=== PATIENT | male | born 1985 | race Caucasian/White ===

== ENCOUNTER 2022-03-08 06:36 | Emergency (ER) | payer BC, SELFPAY ==
[2022-03-08 06:41] VITALS: BP 158/120; PULSE 120; RESP 16; TEMP 37; O2SAT 98
--- NOTE | 2022-03-08 06:46 | ED.SKABFB ---
HPI - Skin/Abscess/Foreign Bdy General Chief complaint: Skin/Abscess/Foreign Body Stated complaint: elbow pain Time Seen by Provider: 03/08/22 06:44 History of Present Illness HPI narrative: Pt awoke with redness and swelling to right elbow. Pt denies trauma or repeatedly leaning on elbow. Pt denies fever or chills. Related Data Allergies Allergy/AdvReac Type Severity Reaction Status Date / Time No Known Allergies Allergy Verified 03/08/22 07:08 Review of Systems Review of Systems: All systems reviewed & are unremarkable except as noted in HPI and below PMFSH Family History Family History (Updated 05/12/14 @ 07:13 by DOCTOR UNKNOWN) Father Hypertension Mother Asthma Other Family history of arthritis Social History Social History Smoking status: Current every day smoker Alcohol intake: current Exam Const: General: healthy appearing and no acute distress Nutritional Appearance: well nourished Orientation/consciousness: patient oriented x3 Limitations: no limitations Resp: Effort & Inspection: normal respiratory effort Auscultation: clear to auscultation bilaterally Cardio: Rate: regular rate Rhythm: regular rhythm GI: GI Palp: Yes Soft to palpation Auscultation: normal bowel sounds Skin: Other: tender erythematous fluctuant area to right posterior elbow. Neuro: General: patient oriented x3, moves all extremities and no focal motor deficits Speech: normal speech Extrem: General: no pedal edema Psych: Mental Status: mental status grossly normal Affect: normal affect Attitude: cooperative Course Course Emergency Course: i and d with no pus mostly blood so more likely bursitis than abscess. will treat as such but add antibiotics just in case Vital Signs Vital signs: Vital Signs Temperature 98.6 F 03/08/22 06:41 Pulse Rate 120 H 03/08/22 06:41 Respiratory Rate 16 03/08/22 06:41 Blood Pressure 158/120 H 03/08/22 06:41 Pulse Oximetry 98 03/08/22 06:41 Temperature 98.6 F 03/08/22 06:41 Pulse Rate 120 H 03/08/22 06:41 Respiratory Rate 16 03/08/22 06:41 Blood Pressure 158/120 H 03/08/22 06:41 Pulse Oximetry 98 03/08/22 06:41 Procedures Abscess I/D upper extremity: Date of Incision: 03/08/22 Time of Incision: 07:02 Side (if applicable): left Local Anesthetic: lidocaine 1% and with epi Technique: incised with #11 blade Irrigation: No Packing used?: none I&D Results: Blood Complications: pain Discharge Plan Discharge Clinical Impression: Cellulitis, Bursitis Patient Disposition: Home, Self-Care Condition: Stable Instructions: Antibiotic Form, Elbow Bursitis (ED), Abscess (ED) Prescriptions: New sulfamethoxazole-trimethoprim [Bactrim DS] 800-160 mg tablet 2 tablet PO Q12H Qty: 40 0RF naproxen [Naprosyn] 500 mg tablet 500 mg PO BID Qty: 20 0RF hydrocodone-acetaminophen 5-325 mg tablet 1 tablet PO Q6H PRN (Reason: pain) Qty: 10 0RF Follow-up/Referrals: Harms,Thad Dasilva M.D. [Primary Care Provider] -
--- NOTE | 2022-03-08 06:58 | PC.NURSE ---
This pt has documented allergy to epinephrine and this RN pulled lidocaine with epinephrine for I&D. Pt in no acute distress at this time but will continue to monitor.
[2022-03-08 07:21] VITALS: BP 128/67; PULSE 68; RESP 16; O2SAT 99
== END 2022-03-08 07:22 | disposition home or self-care (01) ==
PROVIDERS: Emergency Provider Emergency Medicine; PCP Family Medicine
DX: L03.114 Cellulitis of left upper limb (principal); M70.32 Other bursitis of elbow, left elbow; F17.200 Nicotine dependence, unspecified, uncomplicated
CPT/HCPCS: 10060; 99283

== ENCOUNTER 2022-03-11 21:04 | Emergency (ER) | payer BC, SELFPAY ==
[2022-03-11 21:30] VITALS: BP 138/79; PULSE 107; RESP 18; TEMP 36.3; O2SAT 98
[2022-03-11 21:45] LABS: Basophils Absolute Auto 0.1 K/mm3 (0.0-0.1); Basophils Percent Auto 0.6 % (0.2-1.2); Eosinophils Absolute Auto 0.2 K/mm3 (0-0.3); Eosinophils Percent Auto 2.3 % (0-4.4); Hematocrit 47.9 % (42.0-52.0); Hemoglobin 16.3 g/dL (14.0-18.0); Immature Granulocyte Absolute 0.04 K/mm3 (0.00-0.031); Immature Granulocyte Percent A 0.5 % (0-0.5); Lymphocytes Absolute Auto 1.73 K/mm3 (0.9-3.2); Lymphocytes Percent Auto 19.7 % (18.3-44.2); Mean Corpuscular Hemoglobin 33.1 pg (26-34); Mean Corpuscular Volume 97.4 fl (80-100); Mean Platelet Volume 8.9 fl (7.4-10.4); Monocytes Absolute Auto 0.7 K/mm3 (0.1-0.6); Monocytes Percent Auto 7.4 % (2.6-8.5); Neutrophils Absolute Auto 6.1 K/mm3 (1.3-6.7); Neutrophils Percent Auto 69.5 % (45.5-73.1); Platelet Count Result 213 k/mm3 (150-375); Red Blood Count 4.92 M/mm3 (4.6-6.20); Red Cell Distribution Width 12.5 % (11.5-14.5); White Blood Count 8.8 K/mm3 (4.5-10.0)
[2022-03-11 21:56] LABS: Lactic Acid Reflex 1.3 mmol/L (0.7-2.0)
[2022-03-11 21:57] LABS: Alanine Aminotransferase 29 U/L (6-50); Albumin Level 4.6 g/dL (3.5-5.1); Alkaline Phosphatase 91 U/L (38-126); Anion Gap 9 mmol/L (8-16); Aspartate Amino Transferase 28 U/L (17-59); Bilirubin,Total 0.3 mg/dL (0.2-1.3); Blood Urea Nitrogen 16 mg/dL (9-20); Calcium 9.3 mg/dL (8.4-10.2); Carbon Dioxide 25 mmol/L (22-30); Chloride 100 mmol/L (98-107); Estimated CRCL calculation 82 ml/min; Estimated Glomerular Filt Rate > 60; Glucose 83 mg/dL (65-110); Sodium 134 mmol/L (137-145)
--- NOTE | 2022-03-11 23:24 | ED.SKABFB ---
HPI - Skin/Abscess/Foreign Bdy General Chief complaint: Skin/Abscess/Foreign Body Stated complaint: left elbow inflammation Time Seen by Provider: 03/11/22 23:03 History of Present Illness HPI narrative: 36-year-old male presents the emergency room for reevaluation redness and swelling to the left elbow. Patient states he was seen here 4 days ago and diagnosed with infectious bursitis. Patient states he has been taking Bactrim twice daily since. Patient states this morning he woke up with increased area of redness, warmth and tenderness. Patient denies fever. Related Data Allergies Allergy/AdvReac Type Severity Reaction Status Date / Time No Known Allergies Allergy Verified 03/11/22 21:34 Review of Systems Review of Systems: CONSTITUTIONAL: Denies fever, chills, or sweats. EYES: Denies visual changes, redness, or discharge. ENT: Denies rhinorrhea, congestion, sore throat, or otalgia. CARDIOVASCULAR: Denies chest pain, palpitations, or edema. RESPIRATORY: Denies cough or dyspnea. GASTROINTESTINAL: Denies abdominal pain, nausea, vomiting, or diarrhea. GENITOURINARY: Denies dysuria or hematuria. SKIN: Reports redness, swelling, pain to left elbow MUSCULOSKELETAL: Denies back pain, joint pain, or myalgia. NEUROLOGIC: Denies headache, numbness, dizziness, or weakness. PSYCHIATRIC: Denies anxiety or depression. [facility] Family History Family History (Updated 05/12/14 @ 07:13 by DOCTOR UNKNOWN) Father Hypertension Mother Asthma Other Family history of arthritis Social History Social History Smoking status: Current every day smoker Alcohol intake: current Exam Narrative: GENERAL: Well-appearing, well-nourished, no physical limitations, and in no acute distress. HEAD: Normocephalic, atraumatic. EYES: Conjunctivae normal, PERRLA and EOMI. CHEST: Clear to auscultation. No respiratory distress. No wheezes rales or rhonchi. No tenderness. HEART: Regular rate and rhythm. No murmur heard. Normal peripheral pulses. EXTREMITIES: Left elbow: Area of erythema extending from the posterior bicep distally to the mid forearm, area is warm tender; but noted areas of fluctuance or purulent drainage SKIN: Warm, dry, no rash. No noted wounds NEURO: No focal deficits. Alert and oriented x3. MAEW. CN's II-XI intact bilaterally, normal gait PSYCH: Cooperative. Normal mood and affect. Course Vital Signs Vital signs: Vital Signs Temperature 36.3 C L 03/11/22 21:30 Pulse Rate 107 H 03/11/22 21:30 Respiratory Rate 18 03/11/22 21:30 Blood Pressure 138/79 03/11/22 21:30 Pulse Oximetry 98 03/11/22 21:30 Oxygen Delivery Room Air 03/11/22 21:30 Temperature 36.3 C L 03/11/22 21:30 Pulse Rate 94 03/11/22 23:26 Respiratory Rate 16 03/11/22 23:26 Blood Pressure 145/90 H 03/11/22 23:26 Pulse Oximetry 100 03/11/22 23:26 Oxygen Delivery Room Air 03/11/22 21:30 MDM - Skin/Abscess/Foreign Bdy Lab Data Result diagrams: 03/11/22 21:40 03/11/22 21:40 Labs: Lab Results 03/11/22 03/11/22 03/11/22 Range/Units 21:40 21:40 21:40 WBC 8.8 (4.5-10.0) K/mm3 RBC 4.92 (4.6-6.20) M/mm3 Hgb 16.3 (14.0-18.0) g/dL Hct 47.9 (42.0-52.0) % MCV 97.4 (80-100) fl MCH 33.1 (26-34) pg MCHC 34.0 (32-36) g/dl RDW 12.5 (11.5-14.5) % Plt Count 213 (150-375) k/mm3 MPV 8.9 (7.4-10.4) fl Immature Gran % (Auto) 0.5 (0-0.5) % Neut % (Auto) 69.5 (45.5-73.1) % Lymph % (Auto) 19.7 (18.3-44.2) % [place] % (Auto) 7.4 (2.6-8.5) % Eos % (Auto) 2.3 (0-4.4) % Baso % (Auto) 0.6 (0.2-1.2) % Lymph # (Auto) 1.73 (0.9-3.2) K/mm3 [place] # (Auto) 0.7 H (0.1-0.6) K/mm3 Eos # (Auto) 0.2 (0-0.3) K/mm3 Baso # (Auto) 0.1 (0.0-0.1) K/mm3 Abs Immat Gran (auto) 0.04 H (0.00-0.031) K/mm3 Absolute Neuts (auto) 6.1 (1.3-6.7) K/mm3 Absolute Nucleated RBC 0.0 (0.0-0.012) K/mm3 Nucleated RBC % 0.0 (0
[2022-03-11 23:26] VITALS: BP 145/90; PULSE 94; RESP 16; O2SAT 100
[2022-03-11] MEDS: CLINDAMYCIN 600 MG/D5W 50 ML 600 MG/50 ML PIGGYBACK 100 MG IVPB (23:53)
[2022-03-12 00:44] VITALS: BP 140/72; PULSE 78; RESP 16; O2SAT 98
--- NOTE | 2022-03-21 07:39 | PC.NURSE ---
Clindomycin stopped 03/11/22
== END 2022-03-12 00:49 | disposition home or self-care (01) ==
LOC: ANHED 03-12 00:10
PROVIDERS: Emergency Medicine; Emergency Provider Nurse Practitioner Family; PCP Family Medicine
DX: M71.122 Other infective bursitis, left elbow (principal); L03.114 Cellulitis of left upper limb; F17.200 Nicotine dependence, unspecified, uncomplicated
CPT/HCPCS: 36415; 80053; 83605; 85025; 87040; 96365; 99284

== ENCOUNTER 2025-05-30 11:49 | Emergency (ER) | payer OTHER, SELFPAY ==
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
[2025-05-30 11:50] VITALS: BP 156/96; PULSE 87; RESP 18; TEMP 36.6; O2SAT 98
--- NOTE | 2025-05-30 11:51 | ED.LOWEXIN ---
HPI - Extremity Injury (Lower) General Chief Complaint: Extremity Injury, Lower Stated Complaint: knee pain Time Seen by Provider: 05/30/25 11:49 Source: patient Mode of arrival: ambulatory Limitations: no limitations History of Present Illness HPI Narrative: 40 year old male presents to the Emergency Department complaining of chronic left knee pain. Patient states he injured his left knee at work 3 years ago. States he initially saw Orthopedics and was told cartilage tear. Has not followed up because he lost his benefits and now has an divorce attorney involved. States he has an appointment with Ortho in 3 days. Has not followed up with his Primary Care Provider [Dr. Smith] for years. Denies any new injury or trauma. Onset (ago): year(s) (3) Type of Injury: other (stepped off ledge) Place: work Severity: moderate Exacerbating factors: weight bearing and movement Related Data Allergies Allergy/AdvReac Type Severity Reaction Status Date / Time No Known Allergies Allergy Verified 05/30/25 11:51 Review of Systems Review of Systems: All systems reviewed & are unremarkable except as noted in HPI and below Constitutional: Constitutional: Reports as per HPI Eyes: Eyes: Reports as per HPI ENT: Reports system reviewed and no additional complaints, except as documented Cardiovascular: Cardiovascular: Reports as per HPI Respiratory: Respiratory: Reports as per HPI Gastrointestinal: Gastrointestinal: Reports as per HPI Genitourinary: Genitourinary: Reports no additional male genitourinary complaints Musculoskeletal: Musculoskeletal: Reports no additional musculoskeletal complaints and Reports arthralgias Integumentary/Breasts: Skin/Breast: Reports system reviewed and no additional complaints, except as docu Neurologic: Reports system reviewed and no additional complaints, except as documented Endocrine: Endocrine: Reports no additional endocrine complaints Hematologic/Lymphatic: Hematologic/Lymphatic: Reports no additional hematologic/lymphatic complaints Allergic/Immunologic: Allergic/Immunologic: Reports no additional allergic/immunologic complaints PMFSH Family History Family History Father Hypertension Mother Asthma Other Family history of arthritis Social History Social History Smoking status: Current every day smoker Alcohol intake: current Exam Const: General: healthy appearing Nutritional Appearance: well nourished Orientation/consciousness: patient oriented x3 Limitations: no limitations HENMT: Head: normal to inspection Ears: external ears normal Face/Nose/Sinus: Normal external nose present Face and sinus: normal facial exam Eyes: Conjunctivae: conjunctivae normal Pupils: Equal, round and reactive pupils present EOM: EOMs intact bilaterally Direct Ophthalmoscopy: no photophobia Neck: Neck: normal visual inspection Chest: Chest palpation & inspection: normal inspection of the chest Resp: Effort & Inspection: normal respiratory effort Auscultation: clear to auscultation bilaterally Cardio: Rate: regular rate Rhythm: regular rhythm GI: Inspection: non-distended GI Palp: Yes Soft to palpation Skin: General skin exam: normal color Rashes: no rashes Wounds: no wounds Neuro: General: patient oriented x3 Speech: normal speech Gait exam (Neuro): Normal gait present (antalgic ) Other: grossly normal Extrem: General: normal to inspection Other: Left Knee: no obvious deformity, erythema, edema, effusion, contusion, ecchymosis. Tender to palp anterior tibial plateau region. Knee stable to manipulation. NV intact. Course Course Emergency Course: 40 y/o male presents to the ED c/o knee pain. Patient states he injured 3 years ago at work. No new injury. Has not followed up with Orthopedics or his Primary Care Provider. Has an appointment with Ortho in 3 days. PE: mild tenderness anterior tibial plateau region L knee. No obvious deformity, erythema, edema, effusion *discussed with patient. He has had an MRI 3 years ago and is scheduled to see Ortho in 3 days. They are most likely going to want to see MRI and plain XR would not be beneficial. I will provide Rx, however, medications to treat 3 year old injury should be provided by Ortho or PCP. Can provide work note for 48 hours. Patient voices understanding and agreement. Rx and Instructions Discharge Plan Discharge Clinical Impression: Chronic pain of left knee Patient Disposition: Home Condition: Stable Instructions: Knee Pain (ED) Additional Instructions: Weight bearing as tolerated Ice and Elevate for swelling Take medications as prescribed Follow up Orthopedics Follow up Primary Care Provider Patient Language: Greenlandic Prescriptions: New naproxen 500 mg tablet 500 mg PO BID Qty: 20 0RF hydrocodone-acetaminophen 10-325 mg tablet 1 tablet PO Q6H PRN (Reason: pain) Qty: 10 0RF No Action clindamycin HCl 300 mg capsule 300 mg PO Q8H 10 Days Qty: 30 0RF sulfamethoxazole-trimethoprim [Bactrim DS] 800-160 mg tablet 2 tablet PO Q12H Qty: 40 0RF naproxen [Naprosyn] 500 mg tablet 500 mg PO BID Qty: 20 0RF hydrocodone-acetaminophen 5-325 mg tablet 1 tablet PO Q6H PRN (Reason: pain) Qty: 10 0RF Follow-up/Referrals: Harms,Thad Dasilva M.D. [Primary Care Provider] Stand Alone Forms: Work/School Release IP Time of Disposition: 12:18
--- OUTSIDE RECORDS SUMMARY | 2025-05-30 14:00 | XMS_ITS | Clinical Summary ---
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 Name Role Phone Unavailable Primary Care Provider Unavailabl e Social History Tobacco Use Types Packs/Day Years Used Date Smoking Tobacco: Never Assessed Sex and Gender Information Value Date Recorded Sex Assigned at Not on file Legal Sex Male 4:25 PM CDT Gender Identity Not on file Sexual Orientation Not on file Plan of Treatment Health Maintenance Due Date Last Done Comments Annual Physical 1986 Hepatitis C 2001 DTaP, Tdap and Td Vaccines ( 1 - Tdap) 2002 Hepatitis B Vaccines (1 of 3 - 19+ 3-dose series) 2002 HPV Vaccines (1 - 3-dose SCD M series) 2010 COVID-19 Vaccine ( - 2023-2 5 season) 2025 Meningococcal B Vaccine Aged Out No l onger eligible based on patient's age to complete this topic Meningococcal Vaccine Aged Out No ash bhavna eligible based on patient's age to complete this topic Pneumococcal Vaccine: Pediat rics (0 to 5 Years) and At-Risk Patients (6 to 49 Years) Aged Out No longer eligible b ased on patient's age to complete this topic RSV Immunizations Under 20 Months Aged Out No longer eligible based on patient's age to complete this topic
--- OUTSIDE RECORDS SUMMARY | 2025-05-30 14:00 | XMS_ITS | Clinical Summary ---
Author Organization [facility] Address [address] [place] [address] Care Team Providers Care Broadcast Maintenance Technician Name Role Phone Thad Smith MD Primary Care Provider [phone] Allergies Active Allergy Reactions Criticality Noted Date Comments Epinephrine Unknown,Shortness of breath High 016 Medications ipratropium-albute roL (DUO-NEB) 0.5-2.5 mg/3 mL nebulizer solutionIndication s:Chronic Obstructive Pulmonary Disease with Bronchospasms Take 3 mL by nebulization 4 (four) times a day as needed for wheezing or shortness of breath 360 mL 11 09/17/19 22 Active lidocaine (LIDODERM) 5 % APPLY 1 PATCH BY TOPICAL ROUTE ONCE LEAVE ON MOST PAINFUL AREA FOR UP TO 12 HRS 10/19/19 23 Active lisinopril-hydroCH LOROthiazide (ZESTORETIC) 20-25 mg per tabletIndications: hypertension Take 1 tablet by mouth daily 90 tablet 3 12/25/19 23 Active rosuvastatin (CRESTOR) 20 mg tabletIndications: Mixed hyperlipidemia Take 1 tablet (20 mg total) by mouth daily 90 tablet 3 12/25/19 23 Active rOPINIRole (REQUIP) 1 mg tabletIndications: Restless Legs Syndrome Take 1 tablet (1 mg total) by mouth nightly 90 tablet 3 12/25/19 23 Active Trelegy Ellipta 100-62.5-25 mcg inhaler Inhale 1 puff daily 60 each 11 01/14/20 23 Active albuterol HFA (ProAir HFA) 90 mcg/actuation inhalerIndications :Chronic Obstructive Pulmonary Disease Inhale 2 puffs every 4 (four) hours as needed for wheezing or shortness of breath 8.5 g 2 02/04/20 23 Active naproxen (NAPROSYN) 500 mg tabletIndications: Acute pain of left knee TAKE 1 TABLET BY MOUTH TWICE A DAY 60 tablet 1 05/15/20 23 Active HYDROcodone-acetam inophen (NORCO) 10-325 mg per tabletIndications: Pain Take 1 tablet by mouth every 6 (six) hours as needed for pain 20 tablet 11/17/19 24 Active traZODone (DESYREL) 100 mg tabletIndications: Insomnia, unspecified type TAKE 1 TABLET BY MOUTH EVERY DAY AT NIGHT 90 tablet 09/06/20 24 Active Active Problems Problem Noted Date Diagnosed Date Olecranon bursitis of left elbow 03/27/2022 Assessment & Plan (03/27/2022 3:51 PM CDT): Reviewed rest and avoiding manipulation/injury. Avoid resting elbow on hard surfaces. Resume nsaids. Improved erythema per patient. Recommend further evaluation with orthopedic surgery. Hypertension, essential 03/27/2022 Assessment & Plan (11/17/2023 5:27 PM FILM EDITOR SUPERVISOR): Patient reports discontinued blood pressure medication several months ago, states that he was told he should discontinue medication without lab work. Encouraged him to continue checking blood pressure at home and bring log of home blood pressures with him to his next follow-up. Next follow-up in office within the next month. Explained to patient that I am unable to advise whether or not he should resume his blood pressure medication without readings. I expressed concerns for untreated hypertension. He is agreeable to schedule appointment. Assessment & Plan (12/24/2022 5:31 PM CDT): Patient is taking lisinopril-hydrochlorothiazide as prescribed, periodically checking BP at home although he is uncertain of his average readings he states he guesses his systolic is around 130-140. Recommended in office visit follow-up to assess blood pressure. Refilled blood pressure medication today and reviewed red flags warranting immediate evaluation. Assessment & Plan (03/27/2022 3:48 PM CDT): Uncontrolled; discussed need to re-start antihypertensives. Encouraged patient to monitor BP at home. Will follow up in office for BP check in 2 weeks for BP check. Reviewed importance of blood pressure control to prevent end organ damage. Insomnia 03/27/2022 Assessment & Plan (03/27/2022 4:03 PM CDT): Previous good response to medication, has used ambien and trazodone in the past. Will resume trazodone, reviewed medication scheduling and SE's. Discussed sleep hygiene. Restless leg syndrome 03/27/2022 Assessment & Plan (12/24/2022 5:31 PM CDT): Stable; continues Requip. Assessment & Plan (03/27/2022 3:49 PM CDT): Good response to ropinirole, medication refilled today. Acute streptococcal pharyngitis 05/15/2020 Assessment & Plan (05/15/2020 12:00 PM CDT): augmentin 875/125mg po bid x 10 days sent. Aware to complete entire course of abx. Tylenol or ibuprofen for fever/pain Gargle with warm salt water (1tsp salt/1 cup water) Suck on ice chips, popsicles, cough drops, or throat lozenges May use warm salt water gargles for pain or otc chloraseptic spray. To change toothbrush in 72 hours. Reviewed red flags; to go to ER if any drooling or difficulty breathing. Push fluids, relative rest. You may return to work 24 hours after starting antibiotics and you are fever free Do not share food, drinks, or utensils I recommend washing your pillow cases and sheets after 24 hours Note for work given to Mr Borjas. Cellulitis of left lower limb 08/21/2017 Encounter for general adult medical examination with abnormal findings 08/21/2017 Hyperlipidemia 08/21/2017 Assessment & Plan (12/24/2022 5:29 PM CDT): Patient is taking statin as prescribed, reviewed previous lipid panel showing improvement. Patient have repeat labs completed prior to next follow-up in 3 months. Assessment & Plan (03/27/2022 3:45 PM CDT): 03/21/22 TC 281 HDL 70 TRG 79 LDL 195 Uncontrolled; restart rosuvastatin 20 mg daily. Will repeat labs in 3 months. Reviewed diet and exercise and recommended smoking cessation. Pain in left knee 08/21/2017 Assessment & Plan (11/17/2023 5:23 PM FILM EDITOR SUPERVISOR): Explained to patient that he would not receive additional medication for pain as he has not been seen in office and more than 1 year. Recommended he use remaining hydrocodone sparingly and use [id number] anti-inflammatory medication such as naproxen or ibuprofen as needed. States he has been unable to see orthopedic surgery due to loss of insurance. No charge to telemedicine encounter today, patient to schedule in office visit at his earliest convenience/within the next few weeks. Assessment & Plan (12/24/2022 5:43 PM CDT): Patient reports he had MRI completed at [facility] and states he is following with Orthopedic surgery Dr. Cole Ying. Per patient he was referred to PT and pain management. Denies any redness, warmth or fever. Encouraged him to continue PT and follow-up with pain management. Patient is requesting referral to orthopedist closer to home, referral placed today. Continues hydrocodone use sparingly, 1 tab for severe pain typically taking once daily. Recommended continued use of naproxen and lidocaine patches. Pain in left lower leg 08/21/2017 Shortness of breath 08/21/2017 Dyslipidemia 01/22/2016 Assessment & Plan (11/17/2023 5:21 PM FILM EDITOR SUPERVISOR): No longer taking rosuvastatin. Pain in lower limb 01/22/2016 Vitamin D deficiency 01/22/2016 Resolved Problems Problem Noted Date Diagnosed Date Resolved Date BMI 23.0-23.9, adult 05/15/2020 022 Assessment & Plan (05/15/2020 11:57 AM CDT): Discussed healthy diet and importance of regular physical activity. BMI is acceptable for this patient. Immunizations Immunization Administration Dates Next Due Influenza, Unspecified 11/17/2023(Deferr ed: Patient Refused),06/15/2023(Deferred: Patient Refused),06/24/2022(Deferred: Patient Refused),06/15/2022(Deferred: Patient Refused),06/15/2022(Deferred: Patient Refused),03/21/2022(Deferred: Patient Refused),06/15/2021(Deferred: Patient Refused),06/15/2021(Deferred: Patient Refused),05/16/2021(Deferred: Patient Refused),10/09/2020(Deferred: Patient Refused),07/04/2020(Deferred: Patient Refused),09/15/2019(Deferred: Patient Refused),09/15/2019(Deferred: Patient Refused),09/15/2018(Deferred: Patient Refused) Pneumococcal Polysaccharide PPV23 03/21/2022(Def erred: Patient Refused) Medical History Medical History Date Comments Asthma High cholesterol COPD (chronic obstructive pulmonary disease) Hypertension Emphysema (subcutaneous) (surgical) resulting fr om a procedure Emphysema lung Family History Medical History Relation Name Comments Hypertension Father Relation Name Status Comments Father Alive Mother Alive Social History Tobacco Use Types Packs/Day Years Used Date Smoking Tobacco: Former Smokeless Tobacco: Former Tobacco Cessation:Counseling Given: Not Answered Alcohol Use Standard Drinks/Week Comments Yes 0 (1 standard drink = 0.6 oz pur e alcohol) 2 beers a day PHQ-2 Answer Date Recorded PHQ-2 Total Score (If total score is 3 or more points, staff should administer the PHQ-9) 0 11/17/2023 Personal Safety Answer Date Recorded Getting School Help Needed Not on file 08/31 Sex and Gender Information Value Date Recorded Sex Assigned at Not on file Legal Sex Male 5:37 PM FILM EDITOR SUPERVISOR Gender Identity Male 10/03/2020 6:47 PM FILM EDITOR SUPERVISOR Sexual Orientation Straight 10/03/2020 6: 47 PM FILM EDITOR SUPERVISOR Obstetrics History Last Filed Vital Signs Vital Sign Reading Time Taken Comments Blood Pressure 138/86 06/24/2022 2:46 PM CDT Pulse 94 06/24/2022 2:46 PM CDT Temperature 36.7 C (98.1 F) 06/19/2022 4:19 PM CDT Respiratory Rate 18 06/24/2022 2:46 PM CDT Oxygen Saturation 98% 06/24/2022 2:46 PM CDT Inhaled Oxygen Concentration - - Weight 83.9 kg (185 lb) 11/17/2023 4:46 PM FILM EDITOR SUPERVISOR Height 177 cm (5' 9.69) 12/24/2022 3:48 PM CDT Body Mass Index 26.79 12/24/2022 3:48 PM CDT Plan of Treatment Health Maintenance Due Date Last Done Comments DTaP/Tdap/Td Vaccine (1 - Tdap) 1994 Hepatitis B Screening 2001 Regular Well Visit/Exam 18-64 2001 HPV Vaccines (1 - 3-dose SCDM series) 2010 Depression Screening 11/16/2024 11/17/2023, 12/24/2022, 06/24/2022, Additional history exists Influenza Vaccine (#1) 2025 Hepatitis C Screening Completed 10/09/2020 Pneumococcal vaccine <65 Aged Out No longer eligible based on patient's age to complete this topic Varicella Vaccines Discontinued Procedures Procedure Name Priority Date/Time Associated Diagnosis Comments HEPATITIS PANEL, ACUTE Routine 10/09/2020 3:37 PM FILM EDITOR SUPERVISOR Encounter for assessment of STD exposure from Last 3 Months or Most Recently Relevant to Health Maintenance Results * Hepatitis panel, acute (10/09/2020 3:37 PM FILM EDITOR SUPERVISOR) Hep A IgM Nonreactive [facility]reactive [facility] Comment: Interpretive Data: If Hep A IgM Ab is reported as Equivocal, a new sample should be drawn in two weeks for testing. Current interpretive data was last revised on 19. Hep B core IgM Nonreactive Nonreactive [facility] Comment: Interpretive Data If HepB Core IgM Ab is reported as Equivocal, a new sample should be drawn in two weeks for testing. Current interpretive data was last revised on 19. Hep C Ab Nonreactive Nonreactive [facility] Comment: Interpretive Data Nonreactive: Antibodies to HCV not detected. Does NOT exclude the possibility of recent exposure to HCV. Equivocal: Equivocal for HCV antibodies. Supplemental molecular testing will be automatically performed to determine infection status in accordance with current CDC screening recommendations. Reactive: Positive for HCV antibodies. This may represent current or past HCV infection. Supplemental molecular testing will be automatically performed to determine current infection status in accordance with current CDC screening recommendations. Interpretive data was last revised on 2019. HepBsAg Nonreactive Nonreactive [facility] Blood specimen (specimen) 10/09/2020 3:37 PM FILM EDITOR SUPERVISOR 10/09/2020 7:41 PM FILM EDITOR SUPERVISOR us Thad Smith MD LAB MICROBIOLOGY - GENERA L ORDERABLES Final Result [facility] [id number] Department of Laboratories [place], [place] [id number] from Last 3 Months or Most Recently Relevant to Health Maintenance Insurance [employer] WORKERS COMPENSATION GENERIC Care Teams Broadcast Maintenance Technician Relationship Specialty Start Date End Date Thad Smith MD [address] [place] [address] PCP - General Family Medicine 05/01/20
== END 2025-05-30 12:22 | disposition home or self-care (01) ==
PROVIDERS: Emergency Provider Emergency Medicine; PCP Family Medicine
DX: G89.29 Other chronic pain (principal); M25.562 Pain in left knee; F17.200 Nicotine dependence, unspecified, uncomplicated
CPT/HCPCS: 99283